=== PATIENT | female | born 1995 | race Caucasian/White ===

== ENCOUNTER → 2017-08-02 | Outpatient (CLI) | payer BC | END | disposition home or self-care (01) | LOC: C.PAPS 16:24 | PROVIDERS: ATTEND Obstetrics & Gynecology | DX: Z01.419 Encounter for gynecological examination (general) (routine) without abnormal findings (principal) ==

== ENCOUNTER 2020-07-28 12:33 | Inpatient (IN) ==
[2020-07-28] MEDS ORDERED: OXYTOCIN 30 UNITS/500 ML BAG IV PRN ×2 (12:43→15:42)
[2020-07-28 13:01] LABS: Hemoglobin 10.9 g/dL (12.0-16.0); Mean Corpuscular Hemoglobin 28.8 pg (25-34); Mean Corpuscular Volume 87.1 fL (80-100); Mean Platelet Volume 10.2 fL (7.4-10.4); Platelet Count 182 K/uL (130-400); RDW Coefficient of Variation 14.7 % (11.5-14.5); RDW Standard Deviation 46.9 fL (36.4-46.3); Red Blood Count 3.79 M/uL (4.2-5.4); White Blood Count 7.14 K/uL (4.8-10.8)
--- NOTE | 2020-07-28 13:24 | History & Physical Report ---
Date of Service July 28, 2020 Assessment & Plan (1) : (2) SROM (spontaneous rupture of membranes): 25 y/o G1 at 38w1d w/ SROM VSS Fetus cat 1 Labor - has progressed since clinic, will see how pt progresses and augment PRN GBS neg Epidural PRN Admission and Anticipated Discharge Date Admission Date: July 28, 2020 History of Present Illness Primary Care Provider: Satish Nelson, 25 y/o G1 at 38w1d w/ EDC 08/10/20 by [facility] who presents after being seen in clinic w/ LOF and found to be SROM confirmed by amnisure. +FM and occ ctx; scant spotting noted PNI: anemia Allergies Allergy/AdvReac Type Severity Reaction Status Date / Time No Known Allergies Allergy Verified 07/28/20 13:24 Home Medications Home Medications Medication Instructions Recorded Confirmed Type prenat.vits,angie,gmn-xwve-ifmuy 1 tab PO DAILY 12/31/19 07/28/20 History ferrous sulfate [Iron (ferrous 325 mg PO DAILY 07/28/20 07/28/20 History sulfate)] Patient History Medical History (Updated 07/28/20 @ 14:13 by Princess Llamas MD) Cervical cancer screening Encounter for anatomic survey Varicella Surgical History S/P wisdom tooth extraction Family History (Updated 12/31/19 @ 08:57 by Felisa Garcia) Father Heart disease Social History (Updated 12/31/19 @ 08:58 by Felisa Garcia) Smoking Status: Never smoker Hx Alcohol Use: No Hx Substance Use: No Preferred Language: Slovak Communication Ability: Effective Beliefs That Will Affect Care: None marital status: marital status details: Raymond Grimaldo (23) [phone] Current Living Situation: Spouse Current Living Situation Comment: lives with spouse, no pets current occupational status: employed current occupation: teacher [employer] Other Information That Helps Us Care for You: No Feels Safe at Home: Yes Safety Concerns: Feels Safe At This Time Assistive Devices: None Physical Exam Constitutional: well developed and well nourished; no acute distress Respiratory: normal respiratory effort; no respiratory distress and no labored breathing Gastrointestinal (Abdomen): Percussion/Palpation: abdomen soft (gravid); abdomen nontender Genitourinary: OB Exam Abdomen: + vertex and + estimated weight (6-7lbs) Manual OB Exam: + cervical dilation (2-3cm), + cervical effacement 30% and + station (-3) OB Exam Monitor Tracing: + external FHT monitor used, + external uterine monitor used (irreg ctx) and + category I (150/mod/+accel/-decel) Results & Data ([facility]) Vital Signs (Past 12 Hours) Vital Signs Temp Pulse Resp BP 07/28/20 12:48 98.4 F 20 07/28/20 12:44 96 H 129/81 Laboratory Results A+ rubella imm RPR NR Hep B neg HIV neg GBS neg declines cfDNA, quad Diagnostic Findings Ant plac Code Status & VTE Plan VTE Prophylaxis Plan VTE Prophylaxis will be ordered: Yes Coding Level of Care Code None Diagnoses Z34.90 SROM (spontaneous rupture of membranes)
[2020-07-28] MEDS: LACTATED RINGER'S 1,000 ML IV PRN ×3 (16:02→22:59)
--- NOTE | 2020-07-28 16:09 | Labor Progress Brief Note ---
Date of Service July 28, 2020 Subjective Ctx slightly worse Assessment & Plan (1) SROM (spontaneous rupture of membranes): 25 y/o G1 at 38w1d w/ SROM VSS Fetus cat 1 Labor - unchanged since admission, will start pit GBS neg Epidural PRN Admission and Anticipated Discharge Date Admission Date: July 28, 2020 Physical Exam Genitourinary: OB Exam Abdomen: + vertex and + estimated weight (6-7lbs) Manual OB Exam: + cervical dilation (2-3cm), + cervical effacement 30% and + station (-3) OB Exam Monitor Tracing: + external FHT monitor used, + external uterine monitor used (irreg ctx) and + category I (145/mod/+accel/-decel) Results & Data ([facility]) Vital Signs (Past 12 Hours) Vital Signs Temp Pulse Resp BP 07/28/20 15:34 71 132/82 07/28/20 12:48 98.4 F 20 07/28/20 12:44 96 H 129/81 Coding Level of Care Code None Diagnoses SROM (spontaneous rupture of membranes)
--- NOTE | 2020-07-28 19:04 | Labor Progress Brief Note ---
Date of Service July 28, 2020 Subjective Ctx worsened with pit Assessment & Plan (1) SROM (spontaneous rupture of membranes): 25 y/o G1 at 38w1d w/ SROM VSS Fetus cat 1 Labor - pit at 3, now s/p forebag rupture. Will augment PRN GBS neg Epidural PRN Admission and Anticipated Discharge Date Admission Date: July 28, 2020 Physical Exam Genitourinary: Manual OB Exam: + cervical dilation 3 cm, + cervical effacement 50%, + station (-3) and + amniotic fluid (AROM forebag, clear fluid) OB Exam Monitor Tracing: + external FHT monitor used, + external uterine monitor used (q3-4) and + category I (135/mod/+accel/-decel) Results & Data ([facility]) Vital Signs (Past 12 Hours) Vital Signs Temp Pulse Resp BP 07/28/20 18:52 99.0 F 62 20 125/81 07/28/20 17:36 61 113/63 07/28/20 16:41 98.6 F 59 L 20 137/84 07/28/20 15:34 71 132/82 07/28/20 14:50 98.6 F 07/28/20 12:48 98.4 F 20 07/28/20 12:44 96 H 129/81 Coding Level of Care Code None Diagnoses SROM (spontaneous rupture of membranes)
--- NOTE | 2020-07-28 21:01 | Labor Progress Brief Note ---
Date of Service July 28, 2020 Subjective Ctx much worse after forebag arom Assessment & Plan (1) SROM (spontaneous rupture of membranes): 25 y/o G1 at 38w1d w/ PROM, IOL VSS Fetus cat 1 Labor - pit at 7, pt on birthing ball and progressing well GBS neg Epidural PRN Admission and Anticipated Discharge Date Admission Date: July 28, 2020 Physical Exam Genitourinary: Manual OB Exam: + cervical dilation 4 cm, + cervical effacement 80% and + station -2 OB Exam Monitor Tracing: + external FHT monitor used, + external uterine monitor used (q3-4) and + category I (135/mod/+accel/-decel) Results & Data ([facility]) Vital Signs (Past 12 Hours) Vital Signs Temp Pulse Resp BP 07/28/20 20:31 58 L 18 129/82 07/28/20 19:16 59 L 138/77 07/28/20 19:09 98.6 F 18 07/28/20 18:52 99.0 F 62 20 125/81 07/28/20 17:36 61 113/63 07/28/20 16:41 98.6 F 59 L 20 137/84 07/28/20 15:34 71 132/82 07/28/20 14:50 98.6 F 07/28/20 12:48 98.4 F 20 07/28/20 12:44 96 H 129/81 Coding Level of Care Code None Diagnoses SROM (spontaneous rupture of membranes)
[2020-07-28] MEDS ORDERED: BUPIVACAINE 0.25% 30 ML VIAL ONE (21:50)
[2020-07-28] MEDS ORDERED: ePHEDrine sulfate 50 MG/ML AMP ONE (21:50)
[2020-07-28] MEDS ORDERED: fentaNYL citrate 100 MCG/2 ML VIAL ONE (21:51)
[2020-07-28] MEDS ORDERED: fentaNYL 2MCG/ML ROPIV 1.25MG/ML 100 ML BAG EPI ONE (21:51)
[2020-07-28] MEDS ORDERED: DiphenhydrAMINE HCL 50 MG/ML VIAL IV PRN (22:15)
[2020-07-28] MEDS ORDERED: ONDANSETRON INJ 2 MG/ML 2 ML VIAL IV PRN (22:15)
[2020-07-28] MEDS ORDERED: NALOXONE HCL 1 MG in SODIUM CHLORIDE 0.9% 1000ML 1,000 ML IV PRN (22:15)
[2020-07-28] MEDS ORDERED: ePHEDrine sulfate 50 MG/ML AMP IV PRN (22:15)
[2020-07-28] MEDS ORDERED: NALOXONE HCL 0.4 MG/1 ML VIAL/CARP IV PRN (22:15)
[2020-07-28] MEDS ORDERED: fentaNYL 2MCG/ML ROPIV 1.25MG/ML 100 ML BAG EPI PRN (22:15)
--- NOTE | 2020-07-28 22:17 | Anesthesiology Consultation ---
Date of Service July 28, 2020 Covid 19 negative today. Assessment & Plan Chart Review Chart Review: Patient NOT seen in Pre Admission Testing and Acceptable Risk for Labor Epidural Consults Requested none ASA ASA2 Proposed Anesthesia Anesthesia Type: Labor Epidural and CSE Risk / Benefits Reviewed With: PT / POA / Parent / Guardian, Accepts Plan and Informed Consent Obtained History Height/Weight Height: 5 ft 2 in Weight: 73.936 kg Allergies Allergy/AdvReac Type Severity Reaction Status Date / Time No Known Allergies Allergy Verified 07/28/20 13:24 Medications Home Medications Medication Instructions Recorded Confirmed Last Taken prenat.vits,angie,eup-mczs-dyxwc 1 tab PO DAILY 12/31/19 07/28/20 07/27/20 20:00 ferrous sulfate [Iron (ferrous 325 mg PO DAILY 07/28/20 07/28/20 07/27/20 20:00 sulfate)] Active Medications Generic Name Dose Route Start Last Admin Trade Name Freq PRN Reason Stop Dose Admin Lactated Ringer's 1,000 mls @ 125 mls/hr 07/28/20 12:43 07/28/20 21:59 Lr IV 07/30/20 12:42 999 mls/hr .Q8H PRN Administration L&D Protocol Protocol Oxytocin 30 units in 500 mls @ 5 mls/hr 07/28/20 15:42 07/28/20 19:30 Pitocin IV 07/30/20 15:41 0.3 units/hr .Q24H PRN 5 mls/hr Labor Induction/Augmentation Titration Protocol 0.3 UNITS/HR NPO Date Last Intake of Fluids: 07/28/20 Time Last Intake of Fluids: 20:00 Date Last Intake of Solids: 07/28/20 Time Last Intake of Solids: 12:00 Past Medical History Medical History Cervical cancer screening Encounter for anatomic survey Varicella Exercise / Class Metabolic Activity II 4-5 Yardwork/Stairs/Walk up hill Past Family History Family History Father Heart disease Past Surgical History Surgical History S/P wisdom tooth extraction Past Anesthesia History No Hx of Anesthesia Complications and No Family Hx of Anesthesia Complications History of PONV No Hx of PONV and No Hx of Motion Sickness Social History Smoking Status: Never smoker Hx Alcohol Use: No Hx Substance Use: No Review of Systems no chest pain or sob Physical Exam Vital Signs Last Vital Signs Temp 36.7 C 07/28/20 21:16 Pulse 56 L 07/28/20 22:12 Resp 20 07/28/20 21:16 BP 155/80 H 07/28/20 21:16 Pulse Ox 100 07/28/20 22:12 ENMT Mouth: no TMJ abnormality Thyromental Distance: > or= 3.5 Finger Breadths Mallampati Class: II Neck normal visual inspection Respiratory normal respiratory effort Auscultation: lungs clear to auscultation bilaterally Cardiovascular Rate/Rhythm: regular rate and regular rhythm Musculoskeletal Spine: normal cervical ROM Neurologic moves all extremities Psychiatric Orientation: alert and oriented x 3 Testing Laboratory Results 07/28/20 12:47
--- NOTE | 2020-07-29 01:58 | Delivery Summary ---
Vaginal Delivery Summary Date of Service July 29, 2020 Vaginal Delivery Summary PREOPERATIVE DIAGNOSIS: 1. Single intrauterine at 38w2d GA 2. PROM POSTOPERATIVE DIAGNOSIS: 1. Single intrauterine at 38w2d GA 2. PROM 3. Delivered PROCEDURE: 1. Normal spontaneous vaginal delivery. SURGEON: Princess Llamas MD ANESTHESIA: Epidural. ESTIMATED BLOOD LOSS: 500 mL FLUIDS: Continuous LR. URINE OUTPUT: None. COMPLICATIONS: None. CONDITION: Stable. INDICATIONS: 25 y/o G1 at 38w2d who presented to clinic today with complaints of LOF. She was found to have spontaneous rupture of membranes confirmed by amnisure and was subsequently sent to labor and delivery. On arrival, she was noted to have some cervical change however did need pitocin for further augmentation. She desired an epidural for pain control. She then progressed to complete. FINDINGS: A viable female infant weighing 6lb 4.7oz with Apgars of 8 and 9 at 1 and 5 minutes respectively. SPECIMEN: None. OPERATIVE REPORT: The patient progressed to 10 cm, 100% effaced and +2 station, pushed over intact perineum with anesthesia to deliver a viable female infant, weight and Apgars as above. Head of delivered in RAY position. No nuchal cord was present. Body and shoulders were delivered without difficulty. was delivered to maternal abdomen and nursing staff. Delayed cord clamping was performed for 60 seconds. Cord was clamped and cut. Cord blood was obtained. Placenta delivered spontaneously intact with 3-vessel cord. IV oxytocin and fundal massage were given for excellent hemostasis. Vagina, cervix, placenta and perineum were inspected. There was a left vaginal laceration that began to have moderate bleeding prior to delivery of head as well as a deep second degree laceration. The vaginal tissue under the second degree was reinforced using 2-0 vicryl with the second degree was repaired in the usual fashion using 3-0 vicryl. The left vaginal laceration was repaired in a running locked stitch using 3-0 vicryl. Rectal exam was performed which demonstrated no evidence of sutures in the rectum. Sponge and needle counts correct x2. No sponges were left behind. Mother and stable in immediate period. [facility] Vaginal Delivery Charge Vaginal Delivery Codes: 36292 global code for the antepartum, delivery, and post-
[2020-07-29] MEDS ORDERED: SUPERCREAM 0.870% 15 GM JAR EXT PRN (02:35)
[2020-07-29] MEDS ORDERED: BENZOCAINE 20% AER SPR 82.5 GM CAN EXT PRN (02:35)
[2020-07-29] MEDS ORDERED: HYDROCORTISONE ACETATE 25 MG SUPP PR PRN (02:35)
[2020-07-29] MEDS ORDERED: DIPHTHERIA/TETANUS/PERTUSSIS 0.5 ML SYR/VIAL IM ONE (02:35)
[2020-07-29] MEDS ORDERED: OXYTOCIN 30 UNITS/500 ML BAG IV PRN (02:35)
[2020-07-29] MEDS ORDERED: ACETAMINOPHEN 325 MG TAB PO PRN (02:35)
[2020-07-29] MEDS ORDERED: bisacodyL 10 MG SUPP PR PRN (02:35)
--- NOTE | 2020-07-29 02:44 | Anesthesia Procedure Note ---
Date of Service July 29, 2020 Anesthesia Post Epidural Note Vital Signs Vital Signs: Temp Pulse Resp BP Pulse Ox 37.2 C 74 16 130/78 97 07/29/20 01:46 07/29/20 02:30 07/29/20 02:00 07/29/20 02:30 07/29/20 01:41 Pain Intensity Abdomen: Pain Intensity: 0 Notes Mental Status: alert / awake / arousable and participated in evaluation Nausea / Vomiting: adequately controlled Pain: adequately controlled Airway Patency, RR, SpO2: stable & adequate BP & HR: stable & adequate Hydration State: stable & adequate Neuraxial Anesthesia: was administered and sensory block is resolving Anesthetic Complications: no major complications apparent and Pt Satisfied with anesthetic care Epidural: Removed without complications and With tip intact
[2020-07-29] MEDS: DOCUSATE SODIUM 100 MG CAP PO SCH ×2 (08:14→20:16)
[2020-07-29] MEDS: PRENATAL VITAMIN 1 TAB PO SCH (08:15)
[2020-07-29] MEDS: FERROUS SULFATE 325 MG TAB PO SCH (08:15)
[2020-07-29] MEDS: IBUPROFEN 600 MG TAB PO PRN ×2 (08:15→14:20)
--- NOTE | 2020-07-29 15:23 | Obstetrical Progress Note ---
Date of Service July 30, 2020 Assessment & Plan (1) : S/p Day 1 - Feels well today. Eating well, voiding well, ambulating well. - Pain well-controlled with ibuprofen 600mg Q4H PRN. - Vital signs reviewed and WNL. - Hemoglobin reviewed. 10.9 (pre-) - Blood Type: A+, antibody negative, GBS negative, Rubella Immune, COVID-19 negative - Continue routine post- care: encourage ambulation, monitor and control pain with Motrin PRN, continue regular OB diet, monitor lochia - Encourage breast feeding. - Pt counselled on discharge instructions today - After discharge, will have 6-wk follow-up with Dr. Llamas Admission and Anticipated Discharge Date Admission Date: July 28, 2020 Supervising Physician Co-Signing Physician Notes Resident Physician Supervision Note: I was present with Dr. Cuellar during the history and exam. I discussed the case with the resident and agree with the findings and plan as documented in the note. Any exceptions or clarifications are listed here: [None] Documented By: Felisa Arciniega MD, FACOG Subjective HPI Arlene Grimaldo is a 25 y/o female who is PPD 1 spontaneous vaginal delivery at 38 2/7 weeks. She reports feeling well overall this morning. No abdominal cramping and 0-1/10 pain well managed on analgesics. Voiding well. Tolerating meals overnight without difficulty. Patient has been able to ambulate some. passing gas and no bowel movement. Has persistent lochia with some improvement this morning. Currently . Review of Systems Review of Systems: ROS Denies fever or chills. Denies shortness of breath or cough. Denies chest pain. Denies breast pain. Denies dysuria. Denies leg pain or leg swelling. Physical Exam Physical Exam: PE General: Alert, oriented. No acute distress. Cardiac: Regular rate and rhythm. No murmurs. Respiratory: Clear to auscultation bilaterally a/p, no wheezes/rales/rhonchi. No increased work of breathing. Symmetrical chest rise. No respiratory distress. Abdomen: Soft, nontender, nondistended. Bowel sounds present. Uterus: Uterine fundus firm, palpable at umbilicus. Lower Extremities: No lower extremity edema or swelling. No deep calf pain. Flakito's negative bilaterally. Results & Data ([facility]) Vital Signs (Past 12 Hours) Vital Signs Temp Pulse Pulse Pulse Resp BP BP 07/29/20 12:50 36.9 C 76 16 128/83 07/29/20 07:49 36.5 C 80 18 122/81 07/29/20 04:32 36.8 C 91 H 18 115/69 07/29/20 04:00 91 H 115/69 07/29/20 03:45 70 18 125/75 07/29/20 03:30 88 127/66 Pulse Ox 07/29/20 12:50 99 07/29/20 07:49 99 07/29/20 04:32 07/29/20 04:00 07/29/20 03:45 07/29/20 03:30 Resident Activity Tracking Resident Involvement: Resident Care Provided Care Provided: OB Delivery
[2020-07-30] MEDS: IBUPROFEN 600 MG TAB PO PRN (01:23)
[2020-07-30] MEDS: DOCUSATE SODIUM 100 MG CAP PO SCH (08:41)
[2020-07-30] MEDS: PRENATAL VITAMIN 1 TAB PO SCH (08:41)
[2020-07-30] MEDS: FERROUS SULFATE 325 MG TAB PO SCH (08:41)
[2020-07-30] MEDS ORDERED: bisacodyL 5 MG TABEC PO SCH (20:00)
== END 2020-07-30 15:14 | disposition home or self-care (01) | DRG 807 ==
LOC: OPB 12:33 → 4S1 12:34 → 4S2 07-29 04:15

== ENCOUNTER 2024-04-18 12:09 | Inpatient (IN) ==
[2024-04-18] MEDS ORDERED: OXYTOCIN 30 UNITS/NSS 30 UNITS/500 ML BAG IV PRN (12:36)
[2024-04-18] MEDS ORDERED: LIDOCAINE 1% LOCAL 20 ML VIAL INFIL PRN (12:36)
[2024-04-18] MEDS: LACTATED RINGER'S 1,000 ML IV PRN (13:25)
[2024-04-18] MEDS: OXYTOCIN 30 UNITS/NSS 30 UNITS/500 ML BAG IV PRN (13:30)
[2024-04-18 13:45] LABS: Hematocrit (blood only) 34.5 % (37.0-47.0); Hemoglobin 10.9 g/dl (12.0-16.0); Mean Corpuscular Hemoglobin 26.9 pg (25.0-34.0); Mean Corpuscular Hgb Conc 31.6 g/dL (32.0-36.0); Mean Corpuscular Volume 85.2 fL (80.0-100.0); Mean Platelet Volume 10.8 fL (9.4-12.4); Platelet Count 200 K/uL (130-400); RDW Coefficient of Variation 15.6 % (11.5-14.5); Red Blood Count 4.05 M/uL (4.20-5.40); White Blood Count 8.45 K/ul (4.8-10.8)
[2024-04-18 13:54] LABS: Albumin Globulin Ratio 1.2 (0.9-2); Albumin Level 3.9 gm/dl (3.4-5.0); BUN Creatinine Ratio 16.4 (10-20); Bilirubin,Total 0.6 mg/dl (0.2-1.0); Calcium 9.3 mg/dl (8.6-10.3); Creatinine Clr Calc Pharmacy 133.6 ml/min; Est GFR (Non-African American) 124.2 ml/min; Globulin 3.3 gm/dl (2.5-4.0); Potassium 4.5 mmol/L (3.5-5.1); Total Protein 7.2 gm/dl (6.0-8.3)
[2024-04-18 15:20] LABS: Total Protein Urine Random 6.8 mg/dl (0-11.9)
[2024-04-18 15:26] LABS: Creatinine Urine Random 56.1 mg/dl; Protein Creatinine Ratio Urine 0.1 (0-0.2)
[2024-04-18] MEDS: LIDOCAINE 2%/EPINEPHRINE 1:200,000 20 ML PF ONE (17:30)
[2024-04-18] MEDS: fentANYL 2 MCG/ML BUPIVacaine 0.125%-NSS 100ML BAG ONE (17:31)
--- NOTE | 2024-04-18 17:40 | Anesthesiology Consultation ---
Date of Service April 18, 2024 Assessment & Plan Chart Review Chart Review: Acceptable Risk for Labor Epidural Consults Requested none History Height/Weight Height: 5 ft 2 in Weight: 77.564 kg Allergies Allergy/AdvReac Type Severity Reaction Status Date / Time No Known Allergies Allergy Verified 04/18/24 11:02 Medications Home Medications Medication Instructions Recorded Confirmed Last Taken PNV no.[id number] 1 tab PO 1XD 09/19/23 04/18/24 04/17/24 18:00 [ Gummies] ferrous sulfate [Iron (ferrous 1 tab PO 5XWK 02/20/24 04/18/24 04/17/24 18:00 sulfate)] Tums 500 1 tab PO PRN Heartburn 04/18/24 04/17/24 18:00 Active Medications Generic Name Dose Route Start Last Admin Trade Name Freq PRN Reason Stop Dose Admin Oxytocin 30 units in 500 mls @ 8 mls/hr 04/18/24 12:36 04/18/24 16:00 Pitocin 30 Units/Nss IV 04/20/24 12:35 0.48 units/hr .Q24H PRN 8 mls/hr Labor Induction/Augmentation Titration Protocol 0.48 UNITS/HR Lactated Ringer's 1,000 mls @ 125 mls/hr 04/18/24 12:36 04/18/24 16:55 Lr IV 04/20/24 12:35 125 mls/hr .Q8H PRN Administration L&D Protocol Protocol Past Medical History Medical History Varicella vaccination SROM (spontaneous rupture of membranes) Past Family History Family History Father Heart disease Family/Other Breast cancer 1st cousin Denies family history of Ovarian cancer Colorectal cancer Past Surgical History Surgical History S/P wisdom tooth extraction Social History Smoking Status: Never smoker Do You Dip or Chew Tobacco: No Hx Alcohol Use: No Hx Substance Use: No substance use type: does not use Physical Exam Vital Signs Last Vital Signs Temp 37.2 C 04/18/24 15:46 Pulse 90 04/18/24 17:36 Resp 16 06/19/24 15:46 BP 136/81 04/18/24 17:36 Pulse Ox 99 04/18/24 17:34 Testing Laboratory Results 04/18/24 13:05 04/18/24 13:05
[2024-04-18] MEDS ORDERED: diphenhydrAMINE 50 MG/ML VIAL IV PRN (17:42)
[2024-04-18] MEDS ORDERED: NALOXONE HCL 0.4 MG/1 ML VIAL/CARP IV PRN (17:42)
[2024-04-18] MEDS ORDERED: fentaNYL citrate PF 100 MCG/2 ML VIAL EPI PRN (17:42)
[2024-04-18] MEDS ORDERED: ePHEDrine sulfate 50 MG/ML AMP IV PRN (17:42)
[2024-04-18] MEDS ORDERED: SODIUM CHLORIDE 0.9% PF INJ 10 ML VIAL EPI PRN (17:42)
[2024-04-18] MEDS ORDERED: LIDOCAINE 2% MPF LOCAL 5 ML VIAL EPI PRN (17:42)
[2024-04-18] MEDS ORDERED: NALBUPHINE HCL 5 MG in SYRINGE 0 ML IV PRN (17:42)
[2024-04-18] MEDS ORDERED: NALOXONE HCL 1 MG in SODIUM CHLORIDE 0.9% 1,000 ML IV PRN (17:42)
[2024-04-18] MEDS ORDERED: BUPIVACAINE 0.25% PF 30 ML VIAL EPI PRN (17:42)
[2024-04-18] MEDS ORDERED: ROPIVACAINE 0.5% PF 5 MG/ML 20 ML VIAL EPI PRN (17:42)
[2024-04-18] MEDS: BUPIVACAINE 0.25% PF 30 ML VIAL ONE (18:24)
[2024-04-18] MEDS: fentaNYL citrate PF 100 MCG/2 ML VIAL ONE (18:24)
[2024-04-18] MEDS: SODIUM CHLORIDE 0.9% PF INJ 10 ML VIAL ONE (18:24)
[2024-04-18] MEDS: SODIUM CHLORIDE 0.9% PF INJ 10 ML VIAL EPI STA (18:25)
[2024-04-18] MEDS: LIDOCAINE 2%/EPINEPHRINE 1:200,000 20 ML PF EPI STA (18:25)
[2024-04-18] MEDS: fentaNYL citrate PF 100 MCG/2 ML VIAL EPI STA (18:25)
[2024-04-18] MEDS: BUPIVACAINE 0.25% PF 30 ML VIAL EPI STA (18:25)
[2024-04-18] MEDS: ePHEDrine sulfate 50 MG/ML AMP ONE (18:58)
[2024-04-19] MEDS: fentANYL 2 MCG/ML BUPIVacaine 0.125%-NSS 100ML BAG EPI PRN (01:20)
--- NOTE | 2024-04-19 01:44 | Delivery Summary ---
Vaginal Delivery Summary Date of Service April 19, 2024 Vaginal Delivery Summary DIAGNOSES: 1. Friedman intrauterine at 38w6d gestation. 2. Induction of Labor due to Gestational Hypertension. 3. Group B Streptococcus Neg. PROCEDURE: Spontaneous vaginal delivery and repair of first degree laceration. SURGEON: Arlene Sanchez MD. COGNOS LEAD: None. ESTIMATED BLOOD LOSS: 100 mL. COMPLICATIONS: None. PLACENTA: Spontaneous and intact with a 3-vessel cord. DISPOSITION: Stable to labor and delivery. DESCRIPTION: The patient pushed well and brought the head to in DOA position. The infant's head was allowed to deliver with contraction force and no further active pushing, with the perineum protected during this time. There was one loop of nuchal cord. The left shoulder was anterior. The shoulders and body delivered without any difficulty, and the infant was placed on the maternal abdomen. It was vigorous and moving all extremities, and making respiratory efforts. The cord was doubly clamped by the MD and then cut. The placenta delivered spontaneously and was noted to be intact and with a 3VC. The cervix, vagina and perineum were examined and were found to have a first degree perineal laceration repaired in a running locked manner. The fundus was firm and lochia minimal immediately after delivery. [facility] Vaginal Delivery Charge Vaginal Delivery Codes: 66787 global code for the antepartum, delivery, and post-
[2024-04-19] MEDS ORDERED: ACETAMINOPHEN 325 MG TAB PO PRN (04:16)
[2024-04-19] MEDS ORDERED: OXYTOCIN 30 UNITS/NSS 30 UNITS/500 ML BAG IV PRN (04:16)
[2024-04-19] MEDS ORDERED: BENZOCAINE 20% SPRY 85 APPLN/85 GM CAN EXT PRN (04:16)
[2024-04-19] MEDS ORDERED: HYDROCORTISONE ACETATE 25 MG SUPP PR PRN (04:16)
[2024-04-19] MEDS ORDERED: oxyCODONE/ACETAMINOPHEN 5mg/325mg TAB PO PRN (04:16)
[2024-04-19] MEDS: DIPHTHER/TETAN/PERTUS Vaccine (Tdap, Adol/Adult) 0.5mL IM ONE (04:26)
[2024-04-19] MEDS: PRENATAL VITAMIN 1 TAB PO SCH (08:26)
[2024-04-19] MEDS: DOCUSATE SODIUM 100 MG CAP PO SCH (08:26)
[2024-04-19] MEDS: IBUPROFEN 600 MG TAB PO PRN (08:26)
--- NOTE | 2024-04-19 08:36 | Anesthesia Procedure Note ---
Date of Service April 19, 2024 Anesthesia Post Epidural Note Vital Signs Vital Signs: Temp Pulse Resp BP Pulse Ox O2 Del Method 36.7 C 60 18 133/73 97 Room Air 04/19/24 04:01 04/19/24 04:01 04/19/24 04:01 04/19/24 04:01 04/19/24 04:01 04/19/24 04:01 Notes Mental Status: alert / awake / arousable and participated in evaluation Nausea / Vomiting: adequately controlled Pain: adequately controlled Airway Patency, RR, SpO2: stable & adequate BP & HR: stable & adequate Hydration State: stable & adequate Neuraxial Anesthesia: was administered and sensory block resolved Anesthetic Complications: no major complications apparent and Pt Satisfied with anesthetic care Epidural: Removed without complications and With tip intact
[2024-04-19 12:30] VITALS: O2SAT 99
[2024-04-19 21:13] VITALS: RESP 18
[2024-04-20 01:51] VITALS: TEMP 97.9
--- NOTE | 2024-04-20 06:02 | Obstetrical Progress Note ---
Date of Service <Tam Bailey DO - Last Filed: 04/20/24 07:14> April 20, 2024 Assessment & Plan <Tam Bailey DO - Last Filed: 04/20/24 07:14> (1) Encounter for assessment: visit type: exam and care immediately after delivery Qualified Code(s): Z39.0 - Encounter for care and examination of mother immediately after delivery Plan 28 y/o PPD#1: Eating well, voiding well, ambulating well Vitals reviewed, WNL Pain well controlled with Motrin Routine post care - OOB, ambulation, diet progression as tolerated Will have 6 week follow up with Dr. Sanchez Pt to follow up in clinic next week for BP check <Ashley Calvillo MD, FACOG - Last Filed: 04/20/24 07:33> (1) Encounter for assessment: Subjective <Tam Bailey DO - Last Filed: 04/20/24 07:14> Ambulation: ambulating normally Voiding: no voiding problems Passing Gas:: Yes Diet Tolerance:: regular diet Lochia:: Moderate Feeding Type:: breast feeding pain well controlled with Motrin Review of Systems -Denies fever or chills -Denies dyspnea, chest pain, or palpitations -Denies dysuria -Denies headache or changes in vision Physical Exam <Tam Bailey DO - Last Filed: 04/20/24 07:14> General: Alert and oriented. No acute distress Cardiac: Regular rate and rhythm, no murmurs appreciated Respiratory: Lungs clear to auscultation bilaterally, No increased work of b reathing Abdominal: Soft, non-tender, non-distended. Bowel sounds present. Uterus: Uterine fundus firm, palpable below umbilicus Extremities: No lower extremity edema, calves non-tender bilaterally Results & Data <Tam Bailey - Last Filed: 04/20/24 07:14> Vital Signs (Past 12 Hours) Vital Signs Temp Pulse Resp BP Pulse Ox O2 Del Method 04/19/24 23:45 36.6 C 71 18 128/81 04/19/24 20:34 36.7 C 76 18 137/79 99 Room Air Supervising Physician <Ashley Calvillo MD, FACOG - Last Filed: 04/20/24 07:33> Co-Signing Physician Notes Resident Physician Supervision Note: I interviewed and examined the patient. Discussed with Dr. Bailey and agree with findings and plan as documented in the note. Any exceptions or clarifications are listed here: [None] Documented By: Ashley Calvillo MD, FACOG Resident Activity Tracking <Tam Bailey, DO - Last Filed: 04/20/24 07:14> Resident Involvement: Resident Care Provided Care Provided: OB Delivery
[2024-04-20 07:12] LABS: Hematocrit (blood only) 27.7 % (37.0-47.0); Hemoglobin 8.8 g/dl (12.0-16.0); Mean Corpuscular Hemoglobin 27.6 pg (25.0-34.0); Mean Corpuscular Hgb Conc 31.8 g/dL (32.0-36.0); Mean Corpuscular Volume 86.8 fL (80.0-100.0); Mean Platelet Volume 10.8 fL (9.4-12.4); Platelet Count 169 K/uL (130-400); RDW Coefficient of Variation 15.8 % (11.5-14.5); RDW Standard Deviation 48.6 fL (36.4-46.3); Red Blood Count 3.19 M/uL (4.20-5.40); White Blood Count 9.64 K/ul (4.8-10.8)
[2024-04-20 09:09] VITALS: BP 134/76; PULSE 83
[2024-04-20] MEDS ORDERED: bisacodyL 5 MG TABEC PO SCH (20:00)
[2024-04-21] MEDS ORDERED: bisacodyL 10 MG SUPP PR PRN (04:16)
== END 2024-04-20 09:50 | disposition home or self-care (01) | DRG 807 ==
LOC: OPB 12:09 → 4S1 12:11 → 4E2 04-19 04:19
DX: Z3A.38 38 weeks gestation of pregnancy; O70.0 First degree perineal laceration during delivery; O13.4 Gestational [pregnancy-induced] hypertension without significant proteinuria, complicating childbirth; Z37.0 Single live birth